=== PATIENT | male | born 1955 | race Caucasian/White ===

== ENCOUNTER 2018-09-15 21:29 | Emergency (ER) | payer OTHER ==
[~2018-09-15] VITALS: Ht 185.4 cm; Wt 93.0 kg
[2018-09-15 21:30] VITALS: BP 162/89
== END 2018-09-15 22:58 | disposition left against medical advice (07) ==
LOC: ER 22:38
DX: Z53.21 Procedure and treatment not carried out due to patient leaving prior to being seen by health care provider (principal)